=== PATIENT | female | born 1995 | race Caucasian/White ===

== ENCOUNTER 2017-06-24 17:18 | Emergency (ER) | payer OTHER ==
[2017-06-24 19:50] LABS: Basophils % (Auto) 0.4 % (0.0-1.8); Eosinophils # (Auto) 0.3 K/mm3 (0.0-0.4); Eosinophils % (Auto) 2.2 % (0.0-4.3); Hemoglobin 14.3 gm/dl (10.1-14.3); Lymphocytes # (Auto) 3.1 K/mm3 (1.2-5.4); Mean Corpuscular HGB Conc 33 % (30-34); Mean Corpuscular Hemoglobin 28 pg (28-32); Mean Corpuscular Volume 83 fl (79-97); Monocytes # (Auto) 0.8 K/mm3 (0.0-0.8); Monocytes % (Auto) 6.8 % (0.0-7.3); Platelet Count 310 K/mm3 (140-440); Red Blood Count 5.16 M/mm3 (3.65-5.03)
[2017-06-24 20:10] LABS: Alanine Aminotransferase 9 units/L (7-56); BUN/Creatinine Ratio 10; Blood Urea Nitrogen 6 mg/dL (7-17); Calcium 8.9 mg/dL (8.4-10.2); Hemolysis Index 13
[2017-06-24] MEDS ORDERED: TYLENOL #3 PO ONE (20:35)
--- NOTE | 2017-06-24 22:10 | Emergency Department Report ---
Chief Complaint: Abdominal Pain Stated Complaint: CRAMPING Time Seen by Provider: 06/24/17 20:34 - HPI History of Present Illness: The patient's 22-year-old female who presents for evaluation of abdominal pain currently. The patient shares that she is pretty. She complains of cramping abdominal pain for the past one week, associated with intermittent vaginal bleeding. The patient denies fever, chills, night sweats, diarrhea, blood in the stool, dark tarry stool, dysuria, hematuria, flank pain, genital discharge, inability to pass flatus. - Exam Vital Signs: Vital Signs 06/24/17 17:24 Temperature 98 F Pulse Rate 70 Respiratory 70 H Rate Blood Pressure 102/82 O2 Sat by Pulse 99 Oximetry MSE screening note: Focused history and physical exam performed. Due to findings the following was ordered: ED Medical Decision Making - Lab Data Result diagrams: 06/24/17 19:36 06/24/17 19:36 ED Disposition for MSE Condition: Stable Instructions: Abdominal Pain (ED) Referrals: PRIMARY CARE, [Primary Care Provider] - 3-5 Days
[2017-06-25 00:28] LABS: Bilirubin,Urine NEG (Negative); Blood,Urine NEG (Negative); Color,Urine Yellow (Yellow); Mucus,Urine FEW /HPF; Protein,Urine <15 mg/dL mg/dL (Negative); Urobilinogen,Urine < 2.0 mg/dL (<2.0)
--- NOTE | 2017-06-25 00:40 | Ultrasound Report ---
FINAL REPORT EXAM: US OB TRANSVAGINAL HISTORY: abd pain, vb, TECHNIQUE: Transvaginal imaging was obtained of the pelvis along with Doppler interrogation of the uterus and adnexa. FINDINGS: The uterus is anteverted measuring 10.9 cm x 6 cm x 7.4 cm. Within the uterus is a gestational sac which contains a pole and yolk sac. The pole corresponds to a 6 week 1 day IUP. The heart is 109 BPM. There is no evidence of subchorionic bleed. There is minimal free fluid in the cul-de-sac. Both ovaries are normal size, contour, blood flow and echotexture. The right ovary measures 3.2 cm x 3.2 cm x 3.4 cm. The left ovary measures 3.1 cm x 2.2 cm x 2.9 cm. IMPRESSION: Single viable IUP, 6 weeks 1 day. heart rate is 109 BPM. Minimal free fluid in cul-de-sac.
--- NOTE | 2017-06-25 00:41 | Ultrasound Report ---
FINAL REPORT EXAM: US OB < = 14 WEEKS FETUS HISTORY: abd pain, vb, TECHNIQUE: Transabdominal imaging was obtained the pelvis along with Doppler interrogation of the uterus and adnexa. FINDINGS: The uterus is anteverted measuring 10.9 cm x 6 cm x 7.4 cm. Within the uterus is a gestational sac which contains a yolk sac and pole. The pole corresponds to a 6 week 1 day IUP. The heart rate is 109 BPM. There is minimal free fluid in the cul-de-sac. The maternal ovaries are appropriate size contour blood flow and echotexture. The right ovary measures 3.2 cm x 3.2 cm x 3.4 cm. The left ovary measures 3.1 cm x 2.2 cm x 2.9 cm. IMPRESSION: Single viable IUP, 6 week 1 day. heart is 109 BPM Minimal free fluid in cul-de-sac.
--- NOTE | 2017-06-25 00:54 | Emergency Department Report ---
HPI - General Chief Complaint: Abdominal Pain Time Seen by Provider: 06/24/17 20:34 - HPI HPI: This is a 22-year-old female who presents to ED complaining of lower pelvic cramping times a few weeks. Patient states the last measure. Was May 08 2017. She reports positive test. Patient states she is followed by [facility] out of [facility]. Patient states she has an episode of vaginal spotting for 2 days. Patient states vaginal spotting resolved. Patient does complain of lower pelvic cramping that intermittent throughout the day. She denies fevers/chills/nausea/vomiting/abdominal pain/chest pain or shortness of breath ED Past Medical Hx - Past Medical History Hx Hypertension: Yes - Social History Smoking Status: Never Smoker Substance Use Type: None - Medications Home Medications: Home Medications Medication Instructions Recorded Confirmed Last Taken Type Cephalexin [Keflex] 500 mg PO BID #20 capsule 05/15/14 Unknown Rx Permethrin 5% [Acticin 5% CREAM] 60 gm TP ONCE #1 tube 05/15/14 Unknown Rx Acetaminophen [Acetaminophen 8 650 mg PO Q6H #230 tablet.er 06/25/17 Unknown Rx Hour] 21/Iron Fu/Folic Acid 1 each PO DAILY #40 tablet 06/25/17 Unknown Rx [ Complete Caplet] ED Review of Systems ROS: Stated complaint: CRAMPING Other details as noted in HPI Constitutional: denies: chills, fever Eyes: denies: eye pain, eye discharge, vision change ENT: denies: ear pain, throat pain Respiratory: denies: cough, shortness of breath, wheezing Cardiovascular: denies: chest pain, palpitations Endocrine: no symptoms reported Gastrointestinal: denies: abdominal pain, nausea, diarrhea Genitourinary: denies: urgency, dysuria, discharge Musculoskeletal: denies: back pain, joint swelling, arthralgia Skin: denies: rash, lesions Neurological: denies: headache, weakness, paresthesias Psychiatric: denies: anxiety, depression Hematological/Lymphatic: denies: easy bleeding, easy bruising Physical Exam - Physical Exam Vital Signs: Vital Signs 06/24/17 17:24 Temperature 98 F Pulse Rate 70 Respiratory 70 H Rate Blood Pressure 102/82 O2 Sat by Pulse 99 Oximetry Physical Exam: GENERAL: Alert and oriented x3, no apparent distress, Normal Gait, atraumatic. HEAD: Head is normocephalic and a-traumatic. LUNGS: Symetrical with respiration, No wheezing, no rales or crackles, CTAB. HEART: S1, S2 present, regular rate and rhythm without murmur, no rubs, no gallops. Non tender to palpation ABDOMEN: No organomegaly was noted,Positive bowel sounds, soft, and non- distended. . Nontender to palpation on all Quadrants, NO CVA tenderness. BACK: Full range of motion, no spinal tenderness, nontender to palpation. NEUROLOGIC: The patient is cooperative with no focal neurologic deficits. SKIN: Warm and dry, No lesions, No ulceration or induration present. ED Course Vital Signs 06/24/17 17:24 Temperature 98 F Pulse Rate 70 Respiratory 70 H Rate Blood Pressure 102/82 O2 Sat by Pulse 99 Oximetry ED Medical Decision Making - Lab Data Result diagrams: 06/24/17 19:36 06/24/17 19:36 - Radiology Data Radiology results: report reviewed, image reviewed FINAL REPORT EXAM: US OB lt; = 14 WEEKS FETUS HISTORY: abd pain, vb, TECHNIQUE: Transabdominal imaging was obtained the pelvis along with Doppler interrogation of the uterus and adnexa. FINDINGS: The uterus is anteverted measuring 10.9 cm x 6 cm x 7.4 cm. Within the uterus is a gestational sac which contains a yolk sac and pole. The pole corresponds to a 6 week 1 day IUP. The heart rate is 109 BPM. There is minimal free fluid in the cul-de-sac. The maternal ovaries are appropriate size contour blood flow and echotexture. The right ovary measures 3.2 cm x 3.2 cm x 3.4 cm. The left ovary measures 3.1 cm x 2.2 cm x 2.9 cm. IMPRESSION: Single viable IUP, 6 week 1 day. heart is 109 BPM Minimal free fluid in cul-de-sac. Transcribed By: RB Dictated By: PAULINA HARO MD Electronically Authenticated By: PAULINA HARO MD Signed Date/Time: 06/25/17 0036 - Medical Decision Making 22-year-old female presents to ED with threatened ED course: Pt received ultra sound, CBC, urinalysis, test and quantitative ED All labs within normal limits, quantitative elevated matching gestation age Patient states that blvaginal spotting is resolved about 2-3 days ago. Patient is followed by an [facility] out of [facility] Ultrasound shows twin gestation at 6 weeks 1 day with fht of 109, bpm respectively. See reported above Vital signs normalized patient is in no acute distress. I discussed with the patient if follow-up with her [facility]. I discussed all labs and ultrasound findings with the patient. I discussed with the patient that he if bleeding worsens or new symptoms develop to return to ED immediately Critical care attestation.: If time is entered above; I have spent that time in minutes in the direct care of this critically ill patient, excluding procedure time. ED Disposition Clinical Impression: Threatened in early Normal IUP (intrauterine ) on ultrasound Qualifiers: Trimester: first trimester Qualified Code(s): Z34.91 - Encounter for supervision of normal , unspecified, first trimester Disposition: - TO HOME OR SELFCARE Is pt being admited?: No Does the pt Need Aspirin: No Condition: Stable Instructions: Abdominal Pain (ED), Threatened Miscarriage (ED), (ED) Additional Instructions: Make sure to follow up with the obgyn as discussed. Take all your medications as you've been prescribed. Patient your drinking plenty of water 8- 10 glasses per day Avoid intercourse for the next week or 2 until follow-up with her [facility] If you have any worsening symptoms or develop new symptoms please return to ED immediately. Prescriptions: Acetaminophen [Acetaminophen 8 Hour] 650 mg PO Q6H #230 tablet.er 21/Iron Fu/Folic Acid [ Complete Caplet] 1 each PO DAILY #40 tablet Referrals: PRIMARY CARE, [Primary Care Provider] - 3-5 Days DEJUAN MASTERS MD [Referring] - 3-5 Days KARSTEN ANTON MD [Staff Physician] - 3-5 Days GULSHAN MACK MD [Referring] - 3-5 Days OLAF MACK MD [Referring] - 3-5 Days Forms: Accompanied Note, Work/School Release Form(ED) Time of Disposition: 00:59
[2017-06-25 01:10] VITALS: BP 111/70
== END 2017-06-25 01:10 | disposition home or self-care (01) ==
LOC: ED 17:18
DX: O20.0 Threatened abortion (principal); I10 Essential (primary) hypertension; Z3A.01 Less than 8 weeks gestation of pregnancy
CPT/HCPCS: 36415; 76801; 76817; 80053; 81001; 84702; 85025; 99284

== ENCOUNTER 2017-09-19 17:06 | Emergency (ER) | payer OTHER ==
[2017-09-19 17:42] LABS: Basophils # (Auto) 0.1 K/mm3 (0.0-0.1); Basophils % (Auto) 0.5 % (0.0-1.8); Eosinophils # (Auto) 0.3 K/mm3 (0.0-0.4); Eosinophils % (Auto) 1.9 % (0.0-4.3); Hematocrit 37.8 % (30.3-42.9); Lymphocytes # (Auto) 2.7 K/mm3 (1.2-5.4); Lymphocytes % (Auto) 20.2 % (13.4-35.0); Mean Corpuscular HGB Conc 34 % (30-34); Mean Corpuscular Hemoglobin 29 pg (28-32); Mean Corpuscular Volume 86 fl (79-97); Monocytes # (Auto) 0.7 K/mm3 (0.0-0.8); Monocytes % (Auto) 5.4 % (0.0-7.3); Platelet Count 278 K/mm3 (140-440); Red Blood Count 4.42 M/mm3 (3.65-5.03); Red Cell Distribution Width 14.2 % (13.2-15.2)
[2017-09-19 17:50] LABS: Bilirubin,Urine NEG (Negative); Blood,Urine LG (Negative); Color,Urine Red (Yellow); Mucus,Urine 1+ /HPF; Urobilinogen,Urine < 2.0 mg/dL (<2.0)
[2017-09-19 17:54] LABS: RBC,Urine > 182.0 /HPF (0.0-6.0)
--- NOTE | 2017-09-19 19:16 | Emergency Department Report ---
ED HPI - General Chief complaint: Vaginal Bleeding Stated complaint: VAGINAL BLEEDING/ Time Seen by Provider: 09/19/17 19:00 Source: patient Mode of arrival: Ambulatory Limitations: No Limitations - History of Present Illness Initial comments: 22-year-old female past medical history hypertension presents with complaint of vaginal bleeding which started this morning. Also complaining of slight vaginal irritation and dysuria for 2-3 days with increased urinary frequency. Denies any flank pain nausea vomiting fever or chills. Awake alert and oriented 3. Accompanied by family members at bedside. . LMP 05/08/17. MD Complaint: abdominal pain, vaginal bleeding Onset/Timin -: days(s) Radiation: suprapubic Severity: moderate Quality: burning Associated symptoms: vaginal bleeding Vaginal bleeding: light :: Yes Number of weeks : 18 - Related Data Previous Rx's Medication Instructions Recorded Last Taken Type Cephalexin [Keflex] 500 mg PO BID #20 capsule 05/15/14 Unknown Rx Permethrin 5% [Acticin 5% CREAM] 60 gm TP ONCE #1 tube 05/15/14 Unknown Rx Acetaminophen [Acetaminophen 8 650 mg PO Q6H #230 tablet.er 06/25/17 Unknown Rx Hour] 21/Iron Fu/Folic Acid 1 each PO DAILY #40 tablet 06/25/17 Unknown Rx [ Complete Caplet] Acetaminophen [Acetaminophen TAB] 500 mg PO Q6HR PRN #25 tablet 09/19/17 Unknown Rx Nitrofurantoin Monohyd/M-Cryst 100 mg PO BID #14 capsule 09/19/17 Unknown Rx [Macrobid 100 mg Capsule] Allergies Allergy/AdvReac Type Severity Reaction Status Date / Time No Known Allergies Allergy Verified 05/15/14 14:00 ED Review of Systems ROS: Stated complaint: VAGINAL BLEEDING/ Other details as noted in HPI Constitutional: denies: chills, fever Eyes: denies: eye pain, eye discharge, vision change ENT: denies: ear pain, throat pain Respiratory: denies: cough, shortness of breath, wheezing Cardiovascular: denies: chest pain, palpitations Endocrine: no symptoms reported Gastrointestinal: abdominal pain. denies: nausea, diarrhea Genitourinary: denies: urgency, dysuria, discharge Musculoskeletal: denies: back pain, joint swelling, arthralgia Skin: denies: rash, lesions Neurological: denies: headache, weakness, paresthesias Psychiatric: denies: anxiety, depression Hematological/Lymphatic: denies: easy bleeding, easy bruising ED Past Medical Hx - Past Medical History Previous Medical History?: Yes Hx Hypertension: Yes - Surgical History Past Surgical History?: No - Social History Smoking Status: Never Smoker Substance Use Type: None - Medications Home Medications: Home Medications Medication Instructions Recorded Confirmed Last Taken Type Cephalexin [Keflex] 500 mg PO BID #20 capsule 05/15/14 Unknown Rx Permethrin 5% [Acticin 5% CREAM] 60 gm TP ONCE #1 tube 05/15/14 Unknown Rx Acetaminophen [Acetaminophen 8 650 mg PO Q6H #230 tablet.er 06/25/17 Unknown Rx Hour] 21/Iron Fu/Folic Acid 1 each PO DAILY #40 tablet 06/25/17 Unknown Rx [ Complete Caplet] Acetaminophen [Acetaminophen TAB] 500 mg PO Q6HR PRN #25 tablet 09/19/17 Unknown Rx Nitrofurantoin Monohyd/M-Cryst 100 mg PO BID #14 capsule 09/19/17 Unknown Rx [Macrobid 100 mg Capsule] ED Physical Exam - General Limitations: No Limitations General appearance: alert, in no apparent distress - Head Head exam: Present: atraumatic, normocephalic - Eye Eye exam: Present: normal appearance, PERRL, EOMI - ENT ENT exam: Present: mucous membranes moist - Neck Neck exam: Present: normal inspection - Respiratory Respiratory exam: Present: normal lung sounds bilaterally. Absent: respiratory distress - Cardiovascular Cardiovascular Exam: Present: regular rate, normal rhythm. Absent: systolic murmur, diastolic murmur, rubs, gallop - GI/Abdominal GI/Abdominal exam: Present: tenderness (+suprapubic tenderness), normal bowel sounds - External exam: Present: normal external exam Speculum exam: Present: normal speculum exam Bi-manual exam: Present: normal bi-manual exam - Extremities Exam Extremities exam: Present: normal inspection - Back Exam Back exam: Present: normal inspection - Neurological Exam Neurological exam: Present: alert, oriented X3, CN II-XII intact, normal gait - Psychiatric Psychiatric exam: Present: normal affect, normal mood - Skin Skin exam: Present: warm, dry, intact, normal color. Absent: rash ED Course Vital Signs 06/07/18 06/07/18 06/07/18 17:08 20:47 21:00 Temperature 97.9 F Pulse Rate 72 70 Respiratory 18 18 18 Rate Blood Pressure 125/76 Blood Pressure 111/63 [Right] O2 Sat by Pulse 98 100 Oximetry ED Medical Decision Making - Lab Data Result diagrams: 09/19/17 17:16 09/19/17 19:15 - Medical Decision Making A/P: Urinary tract infection, threatened miscarriage 1-she is Rh+. Ultrasound shows IUP at 18 weeks. No subchorionic hemorrhage. Good heart activity 2-Macrobid empirically for urinary tract infection. Urine culture ordered. I advised patient to return to the ED for any flank pain fever chills nausea vomiting or inability to tolerate by mouth. Patient does not currently have any clinical symptoms suggestive of pyelonephritis 3-lab work otherwise unremarkable. Wet prep unremarkable Critical care attestation.: If time is entered above; I have spent that time in minutes in the direct care of this critically ill patient, excluding procedure time. ED Disposition Clinical Impression: Threatened miscarriage Urinary tract infection Qualifiers: Urinary tract infection type: acute cystitis Hematuria presence: without hematuria Qualified Code(s): N30.00 - Acute cystitis without hematuria Disposition: - TO HOME OR SELFCARE Is pt being admited?: No Does the pt Need Aspirin: No Condition: Stable Instructions: Threatened Miscarriage (ED), Urinary Tract Infection in Women (ED ), Dysuria (ED) Prescriptions: Acetaminophen [Acetaminophen TAB] 500 mg PO Q6HR PRN #25 tablet PRN Reason: Pain Nitrofurantoin Monohyd/M-Cryst [Macrobid 100 mg Capsule] 100 mg PO BID #14 capsule Referrals: [facility] [Provider Group] - 3-5 Days [facility] [Provider Group] - 3-5 Days Forms: Accompanied Note, Work/School Release Form(ED) Time of Disposition: 21:22
--- NOTE | 2017-09-19 20:26 | Ultrasound Report ---
FINAL REPORT PROCEDURE: US OB > = 14 WEEKS FETUS TECHNIQUE: Real-time transabdominal sonography of the uterus, placenta, amniotic fluid, adnexa, and fetus was performed with image documentation. Measurements were obtained to determine age/size. M-mode Doppler was used to document heartbeat. CPT 74446 HISTORY: abd pain/ vaginal bleeding COMPARISON: 06/24/2017 FINDINGS: ADDITIONAL GESTATION: None. GENERAL: IUP: Single living intrauterine . Position: Breech Placental position: Posterior, without previa. Amniotic fluid volume: Normal. MATERNAL: Uterus: Within normal limits. Cervical length: 4.2 cm. Internal Os: Closed. FETUS: Heart rate and rhythm: 135 beats per minute. Regular. MEASUREMENTS: BPD: 4.1 centimeters corresponding to 18 weeks and 3 days of gestational age HC: 15.6 centimeters corresponding to 18 weeks and 3 days of gestational age. AC: 12.9 centimeters corresponding to 18 weeks and 3 days of gestational age. FL: 2.8 centimeters corresponding to 18 weeks and 3 days of gestational age. Mean Gestational Age (composite criteria): 18 weeks and 3 days Ratio biometry: Normal. Estimated Weight: 241 grams grams. Interval growth: Appropriate. IMPRESSION: Single intrauterine gestation at 18 weeks and 3 days. Estimated due date: 02/17/2018.
[2017-09-19] MEDS ORDERED: MACROBID PO ONE (20:33)
[2017-09-19] MEDS ORDERED: TYLENOL PO ONE (20:33)
[2017-09-19 20:53] LABS: BUN/Creatinine Ratio 12; Blood Urea Nitrogen 6 mg/dL (7-17); Calcium 8.9 mg/dL (8.4-10.2); Hemolysis Index 22
[2017-09-19 21:01] VITALS: BP 111/63
== END 2017-09-19 21:32 | disposition home or self-care (01) ==
LOC: ED 17:06
DX: O20.0 Threatened abortion (principal); O23.42 Unspecified infection of urinary tract in pregnancy, second trimester; O10.912 Unspecified pre-existing hypertension complicating pregnancy, second trimester; Z3A.18 18 weeks gestation of pregnancy
CPT/HCPCS: 36415; 76805; 80048; 81001; 84702; 85025; 86850; 86900; 86901; 87086; 87210; 87591